=== PATIENT | female | born 1965 | race Caucasian/White ===

== ENCOUNTER 2023-01-30 14:41 | Outpatient (REF) | payer BC, SELFPAY ==
--- NOTE | ~2023-01-30 | XR_ITS ---
EXAMINATION: XR HIP, RIGHT CLINICAL INFORMATION: M25.551 - Pain in right hip COMPARISON: None available. TECHNIQUE: Two views of the right hip. FINDINGS: No fracture or dislocation or destructive process. No definite joint narrowing and no subchondral sclerosis or erosive change. Soft tissue planes appear normal. Probable bone island right ilium. The SI joint is unremarkable. XR/XR hip RT min 2V IMPRESSION: Unremarkable right hip.
--- NOTE | ~2023-01-30 | XR_ITS ---
EXAMINATION: XR SHOULDER, RIGHT CLINICAL INFORMATION: Right shoulder pain COMPARISON: None available. TECHNIQUE: Right shoulder is imaged in 4 views. FINDINGS: No fracture, dislocation, destructive process. Normal glenohumeral joint. The acromioclavicular alignment is normal. No visible rotator cuff calcifications. XR/XR shoulder RT min 2V IMPRESSION: Unremarkable right shoulder.
== END 2023-01-30 14:42 | disposition home or self-care (01) ==
LOC: HO.HMGCX 14:41
PROVIDERS: PCP Hospitalist; Visit Provider Hospitalist
DX: M25.551 Pain in right hip (principal); M25.511 Pain in right shoulder; G89.29 Other chronic pain
CPT/HCPCS: 73030; 73502

== ENCOUNTER 2023-02-03 06:26 | Outpatient (REF) | payer BC, SELFPAY ==
[2023-02-03 11:22] LABS: Appearance Urine Clear; Color Urine Yellow; Glucose Urine UA Negative (Negative); Leukocyte Esterase Urine Negative (Negative); Nitrite Urine Negative (Negative); Urine Blood Negative (Negative); Urine Ketones Negative (Negative); Urine Protein Negative (Neg-Trace)
[2023-02-03 12:02] LABS: Alanine Aminotransferase 21 U/L (0-31); Albumin Level 4.4 g/dL (3.5-5.0); Alkaline Phosphatase 90 U/L (39-117); Anion Gap 10 (12-20); Aspartate Amino Transferase 22 U/L (5-31); Bilirubin Total 0.6 mg/dL (0.0-1.0); Blood Urea Nitrogen 18 mg/dL (9-16); Calcium 9.2 mg/dL (8.4-10.2); Carbon Dioxide 31 mmol/L (22-29); Chloride 103 mmol/L (96-108); Cholesterol 276 mg/dL; Estimated Glomerular Filt Rate > 60; Glucose Fasting 78 mg/dL (60-99); HDL Cholesterol 61 mg/dL; LDL Cholesterol Calculated 201 mg/dl; Potassium 4.3 mmol/L (3.3-5.1); Sodium 140 mmol/L (135-145); Total Protein 7.1 g/dL (6.5-8.0); Triglycerides 73 mg/dL
[2023-02-03 12:09] LABS: TSH reflex Free T4 6.43 uIU/mL (0.32-4.0); Vitamin B12 379 pg/mL (200-900)
[2023-02-03 12:47] LABS: Free T4 (Free Thyroxine) 0.87 ng/dL (0.71-1.85)
[2023-02-08 14:28] LABS: Vitamin D 25-OH, D2 <4 ng/mL; Vitamin D 25-OH, D3 25 ng/mL; Vitamin D 25-OH, Total 25 ng/mL (30-100)
== END 2023-02-03 06:27 | disposition home or self-care (01) ==
LOC: HO.HMGCLDS 06:26
PROVIDERS: PCP Hospitalist; Visit Provider Hospitalist
DX: Z00.00 Encounter for general adult medical examination without abnormal findings (principal); Z11.3 Encounter for screening for infections with a predominantly sexual mode of transmission; E55.9 Vitamin D deficiency, unspecified; Z86.2 Personal history of diseases of the blood and blood-forming organs and certain disorders involving the immune mechanism; E66.3 Overweight
CPT/HCPCS: 36415; 80053; 80061; 81003; 82306; 82607; 84439; 84443

== ENCOUNTER 2023-09-24 06:25 | Day surgery (SDC) | payer BC, SELFPAY ==
[2023-09-22 12:10] VITALS: BMI 26.1
--- NOTE | 2023-09-23 09:58 | P.CONAN_ITS ---
Documented by User: Laya Connor NP 09/23/23 09:58 HPI - Anesthesia Eval Consult details Narrative: 58yo F for Colonoscopy [facility] Active Problems Active Problems: All Active Problems (Updated 02/03/23 @ 13:21 by Latanya Mauro NP) Elevated TSH (Acute) Screen for colon cancer (Acute) Screening mammogram for breast cancer (Acute) BMI 26.0-26.9,adult (Acute) Vitamin D deficiency (Acute) History of anemia due to vitamin B12 deficiency (Acute) Chronic right hip pain (Acute) Chronic right shoulder pain (Acute) Normal physical exam (Acute) Social History Social History Housing: House Patient Tobacco Use Status: Never used Tobacco Use of substances other than those prescribed or required for medical reasons: No Are you DNR?: No Advance Directives: No Advance Directives Information Provided: Yes Current occupational status: employed Current occupation: [employer] Allergies Allergy/AdvReac Type Severity Reaction Status Date / Time No Known Allergies Allergy Verified 09/24/23 06:57 [No Known Allergies*] Exam Height,Weight and Vital Signs: Height 5 ft 8 in Weight 78.018 kg Assessment and Plan Assessment Anesthesia Assessment: Chart Reviewed Documented by User: Donte Acuña MD 09/24/23 07:22 [facility] Family History Family history of problems with anesthesia: No Surgical History History of Problems with Anesthesia: No Social History Social History Housing: House Patient Tobacco Use Status: Never used Tobacco Use of substances other than those prescribed or required for medical reasons: No Are you DNR?: No Advance Directives: No Advance Directives Information Provided: Yes Current occupational status: employed Current occupation: [employer] Allergies Allergy/AdvReac Type Severity Reaction Status Date / Time No Known Allergies Allergy Verified 09/24/23 06:57 [No Known Allergies*] Exam Airway Mallampati Class: II TM Dist: >3cm Neck ROM: Full Assessment and Plan Assessment Anesthesia Assessment: Anesthesia Plan Discussed Final Anesthetic Review Family History of Problems with Anesthesia: No History of Problems with Anesthesia: No NPO: Yes ASA Class: I Final Preanesthetic Review: No Changes in Pt Med Stat, Meds/Allgs Chart Reviewed, Consent Obtained/Reviewed and Anes Risks/Benef Reviewed Patient Risk: Low Procedure Risk: Low Anesthetic Plan Anesthetic Plan: MAC: Disposition: Standard PACU
--- NOTE | 2023-09-24 06:45 | MHC.SHP ---
Pre-Procedural Eval Section A Date of Service: 09/24/23 Section B Chief Complaint: screening Details of Present Illness: grandmother with CRC Relevant Family History (Specify if Yes): Yes Relevant Social History: None Present Medications: see Short Stay Collaborative assessment Medical History: Significant History (b12 def, vit d defm elevated tSH) History of Previous Operations: No relevant previous surgery Allergies: Allergies Allergy/AdvReac Type Severity Reaction Status Date / Time No Known Allergies Allergy Unverified 01/29/23 14:12 [No Known Allergies*] Review of Systems Sugical H&P ROS: Negative: Constitution, Cardiovascular, Respiratory, Neurological, Psychiatric, Hem-Onc, Allergic/Immunologic, Gastrointestinal, Genitourinary, Musculoskeletal, Integumentary, Endocrine and Eyes/Ears/Nose/Throat Exam Surgical H&P Exam: Normal: HEENT, Normal: Heart, Normal: Lungs, Normal: Extremities, Normal: Abdomen, Normal: Skin and Normal: Neurological Plan Diagnosis/Plan: Unchanged I have reviewed the history and physical and performed a pertinent physical examination on my patient. No changes have occurred unless specified. Time Spent With Patient Time: Total time managing care of this patient today ____ minutes.
[2023-09-24 06:52] VITALS: BMI 25.6
[2023-09-24 07:03] VITALS: BP 150/92; PULSE 75; RESP 16; TEMP 36.6; O2SAT 98
[2023-09-24] MEDS: Lactated Ringers 1,000 ML 100 ML IVCONT (07:12)
--- NOTE | 2023-09-24 07:42 | W.PM.OPN ---
Operative Note Operative Note Date of Service: 09/24/23 Narrative: Operative Information Procedure Description: Colonoscopy Indication: screening Anesthesia: MAC COLONOSCOPY Instrument: Olympus variable stiffness pediatric scope 190L Colonoscopy Monitoring: Vital signs and clinical assessment, continuous EKG monitoring, Pulse oximetry, Carbon Dioxide monitoring and blood pressure monitoring were done throughout the procedure. Colon withdrawal time was 7 minutes. Procedure: The patient was placed in the left lateral decubitis position and pre-procedure medications were administered. After a digital rectal examination of the ano-rectum, the video colonoscope was inserted into the rectum and advanced through the colon to the cecum/TI. The colonoscope was slowly withdrawn in a retrograde panoramic fashion and the colon mucosa was carefully examined including a retroflexed view of the rectum. Findings and interventions are described below. Procedure Difficulty: easy Findings: Terminal Ileum-normal Cecum:normal Ascending Colon: normal Transverse Colon -normal Descending Colon:normal Sigmoid Colon: normal Rectum: Retroflexion with small internal hemorrhoids, grade I Anorectum - normal Colon preparation: [place] Bowel Preparation Scale Right colon; 3 Transverse colon: 3 Left colon; 3 (0 = Unprepared colon segment with mucosa not seen due to solid stool that cannot be cleared. 1 = Portion of mucosa of the colon segment seen, but other areas of the colon segment not well seen due to staining, residual stool and/or opaque liquid. 2 = Minor amount of residual staining, small fragments of stool and/or opaque liquid, but mucosa of colon segment seen well. 3 = Entire mucosa of colon segment seen well with no residual staining, small fragments of stool or opaque liquid) Impression and Post Procedure Diagnosis: internal hemorrhoids Plan: High fiber diet leaflet Avoid straining at stool, epsom salts and sitz bath, anusol supps or cream Repeat Colonoscopy in 10 years or earlier if clinically indicated Above findings were reviewed with the patient and relevant handouts were provided if indicated.
[2023-09-24 08:03] VITALS: BP 112/64; PULSE 71; RESP 16; TEMP 36.2; O2SAT 98
[2023-09-24 08:18] VITALS: BP 131/90; PULSE 73; RESP 18; TEMP 36.3; O2SAT 99
== END 2023-09-24 08:43 | disposition home or self-care (01) ==
PROVIDERS: Visit Provider Internal Medicine Gastroenterology
PROC: 0DJD8ZZ Inspection of Lower Intestinal Tract, Via Natural or Artificial Opening Endoscopic (ICD-10-PCS; CPT 45378; principal; 2023-09-24 07:30)
DX: Z12.11 Encounter for screening for malignant neoplasm of colon (principal); K64.0 First degree hemorrhoids; E55.9 Vitamin D deficiency, unspecified; E53.8 Deficiency of other specified B group vitamins; R94.6 Abnormal results of thyroid function studies
CPT/HCPCS: 45378; J2704

== ENCOUNTER → 2023-09-24 06:25 | Outpatient (BNV) | payer BC, SELFPAY | PROVIDERS: Visit Provider Internal Medicine Gastroenterology | DX: Z12.11 Encounter for screening for malignant neoplasm of colon (principal); K64.8 Other hemorrhoids | CPT/HCPCS: 45378 ==

== ENCOUNTER 2023-10-09 12:13 | Outpatient (AMB) | payer BC, SELFPAY ==
--- NOTE | 2023-10-09 12:24 | MHC.PC.OV ---
Vital Signs 10/09/23 12:27 Height 5 ft 8 in Weight 173 lb BMI 26.3 BP 132/76 Blood Pressure Location Lt brachial Position Sitting Pulse 84 Pulse Source Pulse Oximeter Pulse Oximetry (%) 100 Oxygen Delivery Method Room Air Intake Visit Reasons: follow up anxiety depression Intake Note: Patient is here to follow up on anxiety and depression today. Allergies No Known Allergies [No Known Allergies*] Allergy (Verified 10/09/23 12:45) Medication List - Last Reconciled 10/09/23 by Pat Moore CNP bisacodyl (Dulcolax (bisacodyl)) 20 mg (4 x 5 mg) PO ONCE ibuprofen 600 mg PO Q8H PRN polyethylene glycol 3350 (Miralax) 238 grams PO ONCE psyllium husk (Metamucil) 1 tbsp PO DAILY Tobacco use date assessed: 10/09/23 Dental Screening Dental Screen Date: 10/09/23 Did you have a dental visit in the last 12 months?: Yes Did you have a dental problem in the last 6 months where you did not have access to dental care?: No Was dental information given to patient?: Patient has dentist HPI HPI Comments History of Present Illness Details 58-year-old female presents for anxiety and depression Her former PCP is BRYSON who is no longer with the practice. Her last office visit and blood work was in January 2023 She reports h/o anxiety and depression. She was on psychotropic medications 10 years ago. She was also followed by a therapist 8 years ago. She notes that her anxiety and depression worsened in the winter. She notes that she worries a lot especially at night. She is on the verge of transitioning to a new job. She has a large family she cares for and feels overwhelmed sometime. She has been doing an hour and half yoga/meditation weekly for the past 1 year [facility] Social History (Reviewed 10/09/23 @ 12:30 by Kristina Sanders [facility]) Housing: House Patient Tobacco Use Status: Never used Tobacco e-Cigarette/Vaping Use: Never Used Current occupational status: employed Current occupation: [employer] Questionnaire PHQ-9 Over the last 2 weeks, how often have you been bothered by any of the following problems? 1. Little interest or pleasure in doing things: several days 2. Feeling down, depressed, or hopeless: not at all 3. Trouble falling or staying asleep, or sleeping too much: more than half the days 4. Feeling tired or having little energy: several days 5. Poor appetite or overeating: not at all 6. Feeling bad about yourself - or that you are a failure or have let yourself or your family down: several days 7. Trouble concentrating on things, such as reading the newspaper or watching television: not at all 8. Moving or speaking so slowly that other people could have noticed. Or the opposite - being so fidgety or restless that you have been moving around a lot more than usual: not at all 9. Thoughts that you would be better off or of hurting yourself in some way: not at all Total score: 5 Depression Screening Interpretation: Positive Depression Screening Follow-up: Existing condition and Community Mental Health Worker F/U Depression Screening Done: Yes Source: Developed by Drs. Campos Odell, Twila Thornton, Laureano Childs and colleagues, with an educational sil from [employer]. Thrive Questionnaire Date Thrive assessed: 01/29/23 MAXIMILIANO-7 AMB Questionnaire MAXIMILIANO-7 Date MAXIMILIANO - 7 assessed: 10/09/23 Feeling nervous, anxious, or on edge: 1 = Several days Not being able to stop or control worryin = Not at all Worrying too much about different things: 3 = Nearly every day Trouble relaxin = Several days Being so restless that it is hard to sit still: 0 = Not at all Becoming easily annoyed or irritable: 1 = Several days Feeling afraid as if something awful might happen: 0 = Not at all Total MAXIMILIANO-7 score (0-4 normal; 5-9 mild; 10-14 moderate; 15-21 severe): 6 Source: Developed by Drs. Campos Odell, Laureano Zaidi and colleagues, with an educational sil from [employer]. Review of Systems Const Details: Const Denies chills, Denies fatigue, Denies fever(s), Denies headache(s) and Denies weakness ENT Denies dizziness and Denies headache(s) Card Denies chest pain, Denies lightheadedness, Denies dyspnea and Denies other (Palpitations) Resp Denies cough, Denies dyspnea, Denies wheezing and Denies other ( shortness of breath) GI Denies abdominal pain, Denies melena, Denies hematochezia, Denies change in bowel habits, Denies dyspepsia and Denies nausea Denies hematuria and Denies dysuria Musc Denies abnormal gait, Denies myalgias, Denies arthralgias, Denies numbness and Denies tingling Skin/Breast Denies rash, Denies unusual bruising and Denies wounds Neuro Denies abnormal gait, Denies dizziness, Denies headache(s), Denies memory loss, Denies numbness, Denies Sensory deficit (Neuro), Denies tingling and Denies weakness Psych Reports anxiety, Reports depression, Denies memory loss Endo Denies cold intolerance, Denies fatigue, Denies heat intolerance, Denies polydipsia and Denies polyuria Aller/Immun Denies wheezing Physical exam (Primary Care) Vital Signs: Last Vital Signs Pulse 84 10/09/23 12:27 BP 132/76 10/09/23 12:27 Pulse Ox 100 10/09/23 12:27 Oxygen Delivery Method Room Air 10/09/23 12:27 BMI result Body Mass Index 26.3 Tobacco/Smoking Status: Tobacco use Status Tobacco use date assessed 10/09/23 10/09/23 12:37 Patient Tobacco Use Status Never used Tobacco 10/09/23 12:25 e-Cigarette/Vaping Use Never Used 10/09/23 12:37 PHQ-9: PHQ-9 Score PHQ-9: Total score 5 10/09/23 12:37 Depression Screening Interpretation: Positive Depression Screening Follow-up: Existing condition and Community Mental Health Worker F/U Thrive Assessment: Date of Thrive Assessment Date Thrive assessed 01/29/23 10/09/23 12:25 Const Other: General: no acute distress and well developed Nutritional Appearance: well nourished Orientation/consciousness: patient oriented x3 HENMT Head: Yes normocephalic and Yes atraumatic Eyes General: appearance normal, both eyes and all related structures Pupils: Equal, round and reactive pupils present EOM: EOMs intact bilaterally Resp Effort & Inspection: normal respiratory effort Auscultation: clear to auscultation bilaterally Cardio Rate: regular rate Rhythm: regular rhythm Heart sounds: S1 normal heart sound present, S2 normal heart sound present, no gallops, no murmurs and no rubs GI Palpation (GI): No Abdominal aortic bruit present, Soft to palpation, nontender, No hepatosplenomegaly present and No Rebound tenderness present Auscultation: normal bowel sounds General: Yes no CVA tenderness Back/Spine/Pelvis Back: no CVA tenderness Cervical Spine: cervical ROM normal and No Cervical spine tenderness Thoracic/Lumbar Spine: thoraco-lumbar ROM normal, No pain with thoraco-lumbar ROM, No thoracic spinal tenderness and No lumbar spinal tenderness Extrem General: Yes normal to inspection, No edema and No calf tenderness Skin General: warm and dry. Normal skin color. Normal skin turgor Neuro General: patient oriented x3, gait normal and no focal neuro deficit Cranial nerves: Yes Equal, round and reactive pupils present Cognition (Neuro): normal cognition Gait exam (Neuro): Normal gait present Sensory Exam: No Sensory deficit (Neuro) Psych Appearance: grossly normal Affect: normal affect Attitude: cooperative Thought process: Normal thought process present Assessment and Plan Assessment & Plan (1) Anxiety and depression: Code(s): F41.9 - Anxiety disorder, unspecified; F32.A - Depression, unspecified Plan: PHQ-9 and MAXIMILIANO-7 scores revealed mild depression and anxiety She met with the community navigator who would refer her to a therapist Routine exercise encouraged Follow-up in 1 month for transfer of care, anxiety, and depression Return sooner with worsening or new symptoms Will order routine labs in preparation for an extended physical exam Verbalized understanding and agreed with treatment plan (2) Laboratory tests ordered as part of a complete physical exam (CPE): Code(s): Z00.00 - Encounter for general adult medical examination without abnormal findings Plan: Fasting labs ordered as part of a complete physical exam. Advised to fast for at least 10 hours before getting labs drawn. May drink water Verbalized understanding and agreed with treatment plan. Orders: Orders Lipid Panel Today Z00.00 - Encounter for general adult medical examination without abnormal findings UA CC w/rflx Micro + Cult Today Z00.00 - Encounter for general adult medical examination without abnormal findings Complete Blood Count Auto Diff Today Z00.00 - Encounter for general adult medical examination without abnormal findings Comprehensive [place]. Panel Fast Today Z00.00 - Encounter for general adult medical examination without abnormal findings TSH reflex Free T4 Today Z00.00 - Encounter for general adult medical examination without abnormal findings Coding Level of Care Code Est Pt Level 3 (24050) Diagnoses Anxiety and depression F41.9; F32.A Laboratory tests ordered as part of a complete physical exam (CPE) Z00.00
[2023-10-09 12:27] VITALS: BP 132/76; PULSE 84; O2SAT 100; BMI 26.3
== END 2023-10-09 13:10 | disposition home or self-care (01) ==
PROVIDERS: Visit Provider Nurse Practitioner Family
DX: F41.9 Anxiety disorder, unspecified (principal); F32.A Depression, unspecified; Z00.00 Encounter for general adult medical examination without abnormal findings
CPT/HCPCS: 99213

== ENCOUNTER 2024-03-05 16:45 | Outpatient (AMB) | payer BC, SELFPAY ==
[2024-03-05 16:48] VITALS: BP 130/72; PULSE 91; O2SAT 98; BMI 25.5
--- NOTE | 2024-03-05 16:48 | MHC.PC.OV ---
Vital Signs 03/05/24 16:48 03/05/24 17:29 Height 5 ft 8 in Weight 168 lb BMI 25.5 BP 130/72 170/100 H Blood Pressure Location Lt brachial Rt brachial Position Sitting Sitting Pulse 91 Pulse Source Pulse Oximeter Pulse Oximetry (%) 98 Oxygen Delivery Method Room Air Intake Visit Reasons: High Blood Pressure and Hip Pain Intake Note: Patient is here for high blood pressure, and bilateral hip pain, with right hip being worse. She states her blood pressure has been high since she got bitten by tick. Allergies No Known Allergies [No Known Allergies*] Allergy (Verified 03/05/24 17:13) Medication List - Last Reconciled 03/05/24 by Pat Moore CNP ibuprofen 600 mg PO Q8H PRN Tobacco use date assessed: 03/05/24 Dental Screening Dental Screen Date: 10/09/23 HPI HPI Comments History of Present Illness Details 58-year-old female presents with complaints of elevated blood pressure. She notes that her blood pressure has been elevated since she got bitten by a tick to her right calf 2 weeks ago; she was given antibiotic in an urgent care clinic. She notes that her SBP was 160 at the urgent care and her home BP has been in the 150s. She reports associated intermittent headaches which she attributes to job stressors. She denies acute symptoms. She reports significant work stressors due to work demands. She notes that her mother had h/o HTN and HLD and from brain aneurysm. She denies heavy salt consumption. [facility] Social History Housing: House Patient Tobacco Use Status: Never used Tobacco e-Cigarette/Vaping Use: Never Used Current occupational status: employed Current occupation: [employer] Questionnaire PHQ-9 Over the last 2 weeks, how often have you been bothered by any of the following problems? 1. Little interest or pleasure in doing things: several days 2. Feeling down, depressed, or hopeless: several days 3. Trouble falling or staying asleep, or sleeping too much: several days 4. Feeling tired or having little energy: several days 5. Poor appetite or overeating: not at all 6. Feeling bad about yourself - or that you are a failure or have let yourself or your family down: not at all 7. Trouble concentrating on things, such as reading the newspaper or watching television: several days 8. Moving or speaking so slowly that other people could have noticed. Or the opposite - being so fidgety or restless that you have been moving around a lot more than usual: not at all 9. Thoughts that you would be better off or of hurting yourself in some way: not at all Total score: 5 Source: Developed by Drs. Campos Odell, Twila Thornton, Laureano Childs and colleagues, with an educational sil from [employer]. Thrive Questionnaire Date Thrive assessed: 01/29/23 MAXIMILIANO-7 AMB Questionnaire MAXIMILIANO-7 Date MAXIMILIANO - 7 assessed: 10/09/23 Feeling nervous, anxious, or on edge: 1 = Several days Not being able to stop or control worryin = Several days Worrying too much about different things: 1 = Several days Trouble relaxin = More than half the days Being so restless that it is hard to sit still: 0 = Not at all Becoming easily annoyed or irritable: 1 = Several days Feeling afraid as if something awful might happen: 0 = Not at all Total MAXIMILIANO-7 score (0-4 normal; 5-9 mild; 10-14 moderate; 15-21 severe): 6 Source: Developed by Drs. Campos Odell, Twila Thornton, Laureano Childs and colleagues, with an educational sil from [employer]. Review of Systems Const Details: Const Denies chills, Denies fatigue, Denies fever(s), Denies headache(s) and Denies weakness ENT Denies dizziness and Denies headache(s) Card Denies chest pain, Denies lightheadedness, Denies dyspnea and Denies other (Palpitations) Resp Denies cough, Denies dyspnea, Denies wheezing and Denies other ( shortness of breath) GI Denies abdominal pain, Denies melena, Denies hematochezia, Denies change in bowel habits, Denies dyspepsia and Denies nausea Denies hematuria and Denies dysuria Musc Reports as per HPI Skin/Breast Denies rash, Denies unusual bruising and Denies wounds Neuro Denies abnormal gait, Denies dizziness, Denies headache(s), Denies memory loss, Denies numbness, Denies Sensory deficit (Neuro), Denies tingling and Denies weakness Psych Denies anxiety, Denies depression, Denies memory loss Endo Denies cold intolerance, Denies fatigue, Denies heat intolerance, Denies polydipsia and Denies polyuria Aller/Immun Denies wheezing Physical exam (Primary Care) BMI result Body Mass Index 25.5 Tobacco/Smoking Status: Tobacco use Status Tobacco use date assessed 10/09/23 10/09/23 12:37 Patient Tobacco Use Status Never used Tobacco 10/09/23 12:25 e-Cigarette/Vaping Use Never Used 10/09/23 12:37 Thrive Assessment: Date of Thrive Assessment Date Thrive assessed 01/29/23 10/09/23 13:20 Const Other: General: no acute distress and well developed Nutritional Appearance: well nourished Orientation/consciousness: patient oriented x3 HENMT Head: Yes normocephalic and Yes atraumatic Eyes General: appearance normal, both eyes and all related structures Pupils: Equal, round and reactive pupils present EOM: EOMs intact bilaterally Resp Effort & Inspection: normal respiratory effort Auscultation: clear to auscultation bilaterally Cardio Rate: regular rate Rhythm: regular rhythm Heart sounds: S1 normal heart sound present, S2 normal heart sound present, no gallops, no murmurs and no rubs GI Palpation (GI): No Abdominal aortic bruit present, Soft to palpation, nontender, No hepatosplenomegaly present and No Rebound tenderness present Auscultation: normal bowel sounds General: Yes no CVA tenderness Back/Spine/Pelvis Back: no CVA tenderness Cervical Spine: cervical ROM normal and No Cervical spine tenderness Thoracic/Lumbar Spine: thoraco-lumbar ROM normal, No pain with thoraco-lumbar ROM, No thoracic spinal tenderness and No lumbar spinal tenderness Extrem General: Yes normal to inspection, No edema and No calf tenderness Skin General: warm and dry. Normal skin color. Normal skin turgor Lesions: no lesions Rashes: no rashes Trauma: no lacerations or abrasions Wounds: no wounds Nails: normal Neuro General: patient oriented x3, gait normal and no focal neuro deficit Cranial nerves: Yes Equal, round and reactive pupils present Cognition (Neuro): normal cognition Gait exam (Neuro): Normal gait present Sensory Exam: No Sensory deficit (Neuro) Psych Appearance: grossly normal Affect: normal affect Attitude: cooperative Thought process: Normal thought process present Assessment and Plan Assessment & Plan (1) Hypertension: Code(s): I10 - Essential (primary) hypertension Plan: Resting blood pressure is 170/100, above goal of less than 140/90 Will start lisinopril 20 mg daily. Take as prescribed. Instructed on the risks, benefits, and potential adverse reactions of the medication Low-sodium diet encouraged Follow-up next week Friday Return sooner with symptoms or concerns Verbalized understanding and agreed with treatment plan (2) Anxiety and depression: Code(s): F41.9 - Anxiety disorder, unspecified; F32.A - Depression, unspecified Plan: PHQ-9 and MAXIMILIANO-7 scores revealed mild depression and anxiety Routine exercise encouraged Follow-up with symptoms or concerns Verbalized understanding and agreed with the plan Medications: New lisinopril 20 mg PO DAILY 30 days 30 tabs 3RF Coding Level of Care Code New Pt Level 4 (75486) Complex EM visit Add On G2211 Diagnoses Hypertension I10 Anxiety and depression F41.9; F32.A
[2024-03-05 17:29] VITALS: BP 170/100
== END 2024-03-05 17:34 | disposition home or self-care (01) ==
PROVIDERS: PCP Nurse Practitioner Family; Visit Provider Nurse Practitioner Family
DX: I10 Essential (primary) hypertension (principal); F41.9 Anxiety disorder, unspecified; F32.A Depression, unspecified
CPT/HCPCS: 99214; G2211

== ENCOUNTER 2024-03-08 17:04 | Outpatient (AMB) | payer BC, SELFPAY ==
--- NOTE | 2024-03-08 17:10 | A.OFFPC_ITS ---
Vital Signs 03/08/24 17:14 03/08/24 17:19 03/08/24 17:26 Height 5 ft 8 in Weight 170 lb 8 oz BMI 25.9 BP 168/82 H 156/82 H 150/90 H Blood Pressure Location Rt brachial Rt brachial Rt brachial Position Sitting Sitting Sitting Respiration 14 Pulse 85 Pulse Source Pulse Oximeter Pulse Oximetry (%) 99 Oxygen Delivery Method Room Air Intake Visit Reasons: hypertension Intake Note: Follow up hypertension Private Branch Exchange Operator Required: No Allergies No Known Allergies [No Known Allergies*] Allergy (Verified 03/08/24 17:10) Tobacco use date assessed: 03/05/24 Dental Screening Dental Screen Date: 03/08/24 Did you have a dental visit in the last 12 months?: Yes Did you have a dental problem in the last 6 months where you did not have access to dental care?: No Was dental information given to patient?: Patient has dentist HPI HPI Comments History of Present Illness Details 58-year-old female presents for hyperten trae follow-up Her blood pressure was 170/100 3 days ago. She was prescribed lisinopril 20 mg daily which she notes she has been taking as prescribed without adverse reactions. She has been taking the medication in the evening Her home AM BP readings in the past two days are 120/71 and 121/73; PM BP readings in the past two days are 151/90 and 152/88 She has been doing yoga was a week for the past year and a half She offers no complaints and denies acute symptoms at this time [facility] Social History Housing: House Patient Tobacco Use Status: Never used Tobacco e-Cigarette/Vaping Use: Never Used Current occupational status: employed Current occupation: [employer] Current occupational exposures/hazards: Yes (works with blood) Cognitive needs: No Hearing needs: No Vision needs: No Questionnaire Thrive Questionnaire Date Thrive assessed: 01/29/23 AUDIT C Alcohol Use Questionnaire (AUDIT-C) 1. How often do you have a drink containing alcohol?: Monthly or less 2. How many drinks containing alcohol do you have on a typical day when you are drinking?: 1 or 2 3. How often do you have six or more drinks on one occasion?: Never Total Score: 1 MAXIMILIANO-7 AMB Questionnaire MAXIMILIANO-7 Date MAXIMILIANO - 7 assessed: 10/09/23 Source: Developed by Drs. Campos Odell, Twila Thornton, Laureano Childs and colleagues, with an educational sil from [employer]. Review of Systems Const Details: Const Denies chills, Denies fatigue, Denies fever(s), Denies headache(s) and Denies weakness ENT Denies dizziness and Denies headache(s) Card Denies chest pain, Denies lightheadedness, Denies dyspnea and Denies other (Palpitations) Resp Denies cough, Denies dyspnea, Denies wheezing and Denies other ( shortness of breath) GI Denies abdominal pain, Denies melena, Denies hematochezia, Denies change in bowel habits, Denies dyspepsia and Denies nausea Denies hematuria and Denies dysuria Musc Denies abnormal gait, Denies myalgias, Denies arthralgias, Denies numbness and Denies tingling Skin/Breast Denies rash, Denies unusual bruising and Denies wounds Neuro Denies abnormal gait, Denies dizziness, Denies headache(s), Denies memory loss, Denies numbness, Denies Sensory deficit (Neuro), Denies tingling and Denies weakness Psych Denies anxiety, Denies depression, Denies memory loss Endo Denies cold intolerance, Denies fatigue, Denies heat intolerance, Denies polydipsia and Denies polyuria Aller/Immun Denies wheezing Physical exam (Primary Care) Vital Signs: Last Vital Signs Pulse 85 03/08/24 17:14 Resp 14 03/08/24 17:14 BP 156/82 H 03/08/24 17:19 Pulse Ox 99 03/08/24 17:14 Oxygen Delivery Method Room Air 03/08/24 17:14 BMI result Body Mass Index 25.9 Tobacco/Smoking Status: Tobacco use Status Tobacco use date assessed 03/05/24 03/08/24 17:17 Patient Tobacco Use Status Never used Tobacco 03/08/24 17:17 e-Cigarette/Vaping Use Never Used 03/08/24 17:17 Thrive Assessment: Date of Thrive Assessment Date Thrive assessed 01/29/23 03/08/24 17:17 Const Other: General: no acute distress and well developed Nutritional Appearance: well nourished Orientation/consciousness: patient oriented x3 HENMT Head: Yes normocephalic and Yes atraumatic Eyes General: appearance normal, both eyes and all related structures Pupils: Equal, round and reactive pupils present EOM: EOMs intact bilaterally Resp Effort & Inspection: normal respiratory effort Auscultation: clear to auscultation bilaterally Cardio Rate: regular rate Rhythm: regular rhythm Heart sounds: S1 normal heart sound present, S2 normal heart sound present, no gallops, no murmurs and no rubs GI Palpation (GI): No Abdominal aortic bruit present, Soft to palpation, nontender, No hepatosplenomegaly present and No Rebound tenderness present Auscultation: normal bowel sounds General: Yes no CVA tenderness Back/Spine/Pelvis Back: no CVA tenderness Cervical Spine: cervical ROM normal and No Cervical spine tenderness Thoracic/Lumbar Spine: thoraco-lumbar ROM normal, No pain with thoraco-lumbar ROM, No thoracic spinal tenderness and No lumbar spinal tenderness Extrem General: Yes normal to inspection, No edema and No calf tenderness Skin General: warm and dry. Normal skin color. Normal skin turgor Neuro General: patient oriented x3, gait normal and no focal neuro deficit Cranial nerves: Yes Equal, round and reactive pupils present Cognition (Neuro): normal cognition Gait exam (Neuro): Normal gait present Sensory Exam: No Sensory deficit (Neuro) Psych Appearance: grossly normal Affect: normal affect Attitude: cooperative Thought process: Normal thought process present Assessment and Plan Assessment & Plan (1) Hypertension: Code(s): I10 - Essential (primary) hypertension Plan: Resting blood pressure is 150/90, above goal of less than 140/90 Continue to take lisinopril 20 mg daily Low-sodium diet encouraged Continue to check blood pressure daily, record readings, and bring to next appointment. Called and report blood pressure readings persistently above 160/90 with or without symptoms Follow-up for a nurse visit in 1 week for blood pressure check and PCP in 2 weeks Return sooner with symptoms or concerns Verbalized understanding and agreed with treatment plan Coding Level of Care Code Est Pt Level 3 (13716) Diagnoses Hypertension I10
[2024-03-08 17:14] VITALS: BP 168/82; PULSE 85; RESP 14; O2SAT 99; BMI 25.9
[2024-03-08 17:19] VITALS: BP 156/82
[2024-03-08 17:26] VITALS: BP 150/90
== END 2024-03-08 17:35 | disposition home or self-care (01) ==
PROVIDERS: PCP Nurse Practitioner Family; Visit Provider Nurse Practitioner Family
DX: I10 Essential (primary) hypertension (principal)
CPT/HCPCS: 99213

== ENCOUNTER 2024-03-23 17:00 | Outpatient (AMB) | payer BC, SELFPAY ==
--- NOTE | 2024-03-23 17:01 | A.OFFPC_ITS ---
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 Accompanied by: Self / Same As Patient Allergies No Known Allergies [No Known Allergies*] Allergy (Verified 03/23/24 17:32) Medication List - Last Reconciled 03/23/24 by Pat Moore CNP ibuprofen (Advil Liqui-Gels Minis) 200 mg PO Q6H PRN lisinopril 20 mg PO DAILY 30 days multivitamin 1 tab PO DAILY psyllium husk (Metamucil) 1 tbsp PO DAILY Tobacco use date assessed: 03/05/24 Dental Screening Dental Screen Date: 03/08/24 HPI HPI Comments History of Present Illness Details 58 y/o female presents for HTN follow up She admits to taking Lisinopril as prescribed without adverse reactions She notes that her home systolic blood pressure readings have been between 130 and 140 Reports persistent right lateral hip pain for the past 2 years; worse with prolonged sitting, standing, and with certain movements. She takes Tylenol and ibuprofen with some relief. She notes routine physical exercise. No fall, injury, trauma. X-ray of the right hip in January 2023 was normal. No history of physical therapy or ortho consult [facility] Medical History (Updated 03/23/24 @ 17:09 by MOODY Arteaga) No pertinent past medical history Surgical History (Updated 03/23/24 @ 17:09 by MOODY Arteaga) No pertinent past surgical history Social History Housing: House Patient Tobacco Use Status: Never used Tobacco e-Cigarette/Vaping Use: Never Used service: No Current occupational status: employed Current occupation: [employer] Current occupational exposures/hazards: Yes (works with blood) Cognitive needs: No Hearing needs: No Vision needs: No Questionnaire Thrive Questionnaire Date Thrive assessed: 01/29/23 MAXIMILIANO-7 AMB Questionnaire MAXIMILIANO-7 Date MAXIMILIANO - 7 assessed: 10/09/23 Source: Developed by Drs. Campos LTwila Menezes, Laureano Childs and colleagues, with an educational sil from [employer]. Review of Systems Const Details: Const Denies chills, Denies fatigue, Denies fever(s), Denies headache(s) and Denies weakness ENT Denies dizziness and Denies headache(s) Card Denies chest pain, Denies lightheadedness, Denies dyspnea and Denies other (Palpitations) Resp Denies cough, Denies dyspnea, Denies wheezing and Denies other ( shortness of breath) GI Denies abdominal pain, Denies melena, Denies hematochezia, Denies change in bowel habits, Denies dyspepsia and Denies nausea Denies hematuria and Denies dysuria Musc Reports right hip pain, Denies abnormal gait, Denies numbness and Denies tingling Skin/Breast Denies rash, Denies unusual bruising and Denies wounds Neuro Denies abnormal gait, Denies dizziness, Denies headache(s), Denies memory loss, Denies numbness, Denies Sensory deficit (Neuro), Denies tingling and Denies weakness Psych Denies anxiety, Denies depression, Denies memory loss Endo Denies cold intolerance, Denies fatigue, Denies heat intolerance, Denies polydipsia and Denies polyuria Aller/Immun Denies wheezing Physical exam (Primary Care) Vital Signs: Last Vital Signs Temp 97.6 F 03/23/24 17:04 Pulse 92 03/23/24 17:04 Resp 14 03/23/24 17:04 BP 130/90 H 03/23/24 17:04 Pulse Ox 99 03/23/24 17:04 Oxygen Delivery Method Room Air 03/23/24 17:04 BMI result Body Mass Index 25.9 Tobacco/Smoking Status: Tobacco use Status Tobacco use date assessed 03/05/24 03/23/24 17:03 Patient Tobacco Use Status Never used Tobacco 03/23/24 17:03 e-Cigarette/Vaping Use Never Used 03/23/24 17:03 Thrive Assessment: Date of Thrive Assessment Date Thrive assessed 01/29/23 03/23/24 17:03 Const Other: General: no acute distress and well developed Nutritional Appearance: well nourished Orientation/consciousness: patient oriented x3 HENMT Head: Yes normocephalic and Yes atraumatic Eyes General: appearance normal, both eyes and all related structures Pupils: Equal, round and reactive pupils present EOM: EOMs intact bilaterally Resp Effort & Inspection: normal respiratory effort Auscultation: clear to auscultation bilaterally Cardio Rate: regular rate Rhythm: regular rhythm Heart sounds: S1 normal heart sound present, S2 normal heart sound present, no gallops, no murmurs and no rubs GI Palpation (GI): No Abdominal aortic bruit present, Soft to palpation, nontender, No hepatosplenomegaly present and No Rebound tenderness present Auscultation: normal bowel sounds General: Yes no CVA tenderness Back/Spine/Pelvis Back: no CVA tenderness Cervical Spine: cervical ROM normal and No Cervical spine tenderness Thoracic/Lumbar Spine: thoraco-lumbar ROM normal, No pain with thoraco-lumbar ROM, No thoracic spinal tenderness and No lumbar spinal tenderness Extrem General: Yes normal to inspection, No edema and No calf tenderness Negative right straight leg raise. No overt injury or trauma of the right hip/lower extremity Skin General: warm and dry. Normal skin color. Normal skin turgor Neuro General: patient oriented x3, gait normal and no focal neuro deficit Cranial nerves: Yes Equal, round and reactive pupils present Cognition (Neuro): normal cognition Gait exam (Neuro): Normal gait present Sensory Exam: No Sensory deficit (Neuro) Psych Appearance: grossly normal Affect: normal affect Attitude: cooperative Thought process: Normal thought process present Assessment and Plan Assessment & Plan (1) Hypertension: Code(s): I10 - Essential (primary) hypertension Plan: Resting blood pressure is 130/90, slightly above goal of less than 140/90 Continue current treatment regimen Low-sodium diet and routine exercise encouraged Follow-up in 1 month for an extended physical exam or return sooner with symptoms or concerns Verbalized understanding and agreed with treatment plan (2) Chronic right hip pain: Code(s): M25.551 - Pain in right hip; G89.29 - Other chronic pain Plan: Chronic persistent right hip pain x2 years; worst with prolonged s itting/standing or certain movements Negative right straight leg raise. No overt injury or trauma of the right hip/lower extremity X-ray of the right hip in January 2023 was normal Will order right hip/pelvis x-ray Advised to take Tylenol or ibuprofen as needed Warm/cool compresses encouraged May referred to PT or Ortho Return with worsening or new symptoms Verbalized understanding and agreed with treatment plan Orders: Orders XR hip RT w PEL1V Today G89.29 - Other chronic pain, M25.551 - Pain in right hip Coding Level of Care Code Est Pt Level 4 (84123) Complex EM visit Add On G2211 Diagnoses Hypertension I10 Chronic right hip pain M25.551; G89.29
[2024-03-23 17:04] VITALS: BP 130/90; PULSE 92; RESP 14; TEMP 36.4; O2SAT 99; BMI 25.9
== END 2024-03-23 17:43 | disposition home or self-care (01) ==
PROVIDERS: PCP Nurse Practitioner Family; Visit Provider Nurse Practitioner Family
DX: I10 Essential (primary) hypertension (principal); M25.551 Pain in right hip; G89.29 Other chronic pain
CPT/HCPCS: 99214

== ENCOUNTER 2024-04-24 09:48 | Outpatient (REF) | payer BC, SELFPAY ==
--- NOTE | ~2024-04-24 | XR_ITS ---
EXAMINATION: XR HIP, RIGHT WITH PELVIS 1 VIEW CLINICAL INFORMATION: Right hip pain COMPARISON: None available. TECHNIQUE: Two views of the right hip. AP view of the pelvis. FINDINGS: There are no pertinent prior studies available for comparison. Femoral heads are well-seated in the respected acetabula. Hip joint spaces are preserved. There is no evidence of significant degenerative or arthritic changes at the hip joints. Symphysis pubis and sacroiliac joints are unremarkable. A faint ill-defined mixed sclerotic and lucent density is noted in the right iliac bone measuring 1.3 cm in maximum dimension. No additional suspicious sclerotic or lytic lesions are seen. No evidence of acute fracture or dislocation in the pelvis and right hip. XR/XR hip RT w PEL1V IMPRESSION: Unremarkable radiographic appearance of the right hip. An ill-defined mixed lucent and sclerotic density in the right iliac bone is nonspecific. There are no pertinent prior studies available for comparison. Consider further evaluation with MRI (without and with contrast) and/or nuclear bone scan. No acute osseous abnormality in the pelvis otherwise.
[2024-04-24 10:26] LABS: MANUAL DIFF FLAG NO
[2024-04-24 11:08] LABS: Basophils Percent Auto 0.5 % (0-2); Eosinophils Absolute Auto 0.1 X10*3/uL (0.0-0.4); Eosinophils Percent Auto 1.8 % (0-4); Hematocrit 39.5 % (37.0-47.0); Hemoglobin 13.2 g/dl (12.0-16.0); Imm Gran Abs Auto 0.01 X10*3/uL (0.00-0.03); Imm Gran Pct Auto 0.3 % (0.0-0.4); Lymphocytes Absolute Auto 1.2 X10*3/uL (1.2-4.9); Lymphocytes Percent Auto 31.6 % (20-40); Mean Corpuscular HGB Conc 33.4 g/dl (31.0-35.0); Mean Corpuscular Hemoglobin 29.9 pg (27.0-33.0); Mean Corpuscular Volume 89.6 fL (80.0-98.0); Mean Platelet Volume 9.6 fL (9.4-12.3); Monocytes Absolute Auto 0.3 X10*3/uL (0.1-1.2); Monocytes Percent Auto 7.4 % (2-11); Neutrophils Absolute Auto 2.3 x10*3/uL (2.0-8.3); Neutrophils Percent Auto 58.4 % (45-73); Platelet Count 227 X10*3/uL (160-400); Red Blood Count 4.41 X10*6/uL (4.20-5.50); Red Cell Distribution Width 12.5 % (11.0-16.0); White Blood Count 3.9 X10*3/uL (4.8-10.8)
[2024-04-24 11:27] LABS: Appearance Urine Clear; Color Urine Yellow; Glucose Urine UA Negative (Negative); Leukocyte Esterase Urine Trace (Negative); Nitrite Urine Negative (Negative); PH 5.5 (5.0-9.0); Specific Gravity - Urine 1.015 (1.005-1.025); UMIC TRIGGER UACC YES; Urine Blood Negative (Negative); Urine Ketones Negative (Negative); Urine Protein Negative (Neg-Trace)
[2024-04-24 11:32] LABS: Bacteria Urine None Seen (None Seen); Hyaline Casts Urine 0-2 /LPF (0-2); RBC Urine 0-2 /HPF (0-2); Squamous Epithelial Cell Urine 0-2 /HPF (0-2); WBC Urine 0-5 /HPF (0-5)
[2024-04-24 11:55] LABS: Alanine Aminotransferase 25 U/L (0-31); Albumin Level 4.8 g/dL (3.5-5.0); Alkaline Phosphatase 90 U/L (39-117); Anion Gap 14 (12-20); Aspartate Amino Transferase 24 U/L (5-31); Bilirubin Total 0.6 mg/dL (0.0-1.0); Blood Urea Nitrogen 10 mg/dL (9-16); Calcium 9.8 mg/dL (8.4-10.2); Carbon Dioxide 25 mmol/L (22-29); Chloride 105 mmol/L (96-108); Cholesterol 332 mg/dL (<200); Estimated Glomerular Filt Rate > 60; Glucose Fasting 89 mg/dL (60-99); HDL Cholesterol 58 mg/dL (>40); LDL Cholesterol Calculated 255 mg/dL (<100); Sodium 140 mmol/L (135-145); Triglycerides 97 mg/dL (<150)
[2024-04-24 12:04] LABS: TSH reflex Free T4 2.09 uIU/mL (0.32-4.0)
== END 2024-04-24 09:49 | disposition home or self-care (01) ==
LOC: HO.XRAY 09:48
PROVIDERS: PCP Nurse Practitioner Family; Visit Provider Nurse Practitioner Family
DX: Z00.00 Encounter for general adult medical examination without abnormal findings (principal); M25.551 Pain in right hip; G89.29 Other chronic pain
CPT/HCPCS: 36415; 73502; 80053; 80061; 81001; 84443; 85025

== ENCOUNTER 2024-05-01 10:40 | Outpatient (AMB) | payer BC, SELFPAY ==
--- NOTE | 2024-05-01 10:46 | AM.OFFWIN_ITS ---
Intake Vital Signs 05/01/24 10:47 Height 5 ft 8 in Weight 168 lb BMI 25.5 BP 132/84 Blood Pressure Location Rt brachial Position Sitting Pulse 94 Pulse Source Pulse Oximeter Temp 98.7 F Temp Source Oral Pulse Oximetry (%) 99 Oxygen Delivery Method Room Air Intake Visit Reasons: EP lft hip pain down left up back Intake Note: pt here c/o LT hip and back pain. Started AM. Patient Tobacco Use Status: Never used Tobacco Allergies No Known Allergies [No Known Allergies*] Allergy (Verified 05/03/24 16:13) Do you need a note to return to daycare/school/sports/work: No HPI EP lft hip pain down left up back HPI Details Patient is a 58-year-old female comes to the walk-in clinic complaining of left hip pain radiating up and down the back for the last 2 days. She has a proximally 2 year history of chronic right low back pain that has been getting worked up by primary care, recent hip x-ray results had not been reported yet. She reports that she stretches regularly. Taking [id number] anti- inflammatories as needed. No cauda equina, saddle anesthesia, or other red flag symptoms reported. [facility] Medical History No pertinent past medical history Surgical History No pertinent past surgical history Social History Housing: House Patient Tobacco Use Status: Never used Tobacco e-Cigarette/Vaping Use: Never Used Patient : No service: No Current occupational status: employed Current occupation: [employer] Current occupational exposures/hazards: Yes (works with blood) Cognitive needs: No Hearing needs: No Vision needs: No Review of Systems Const All systems reviewed & are unremarkable except as noted in HPI and below Physical Exam Vital Signs: Last Vital Signs Temp 98.7 F 05/01/24 10:47 Pulse 94 05/01/24 10:47 BP 132/84 05/01/24 10:47 Pulse Ox 99 05/01/24 10:47 Oxygen Delivery Method Room Air 05/01/24 10:47 BMI result Body Mass Index 25.5 Const General: cooperative, healthy appearing, comfortable, no acute distress, alert, awake, Physically active and well groomed; No anxious, diaphoretic, ill appearing, intoxicated appearing, poor hygiene or tired appearing Nutritional Appearance: average body habitus Limitations: no limitations Resp Effort & Inspection: normal respiratory effort Cardio Rate: regular rate Back/Spine/Pelvis Thoracic/Lumbar Spine: thoraco-lumbar ROM normal, straight leg raise negative bilaterally, No mass, paraspinal muscle tenderness and No lumbar spinal tenderness Sacroiliac joints: on the left Skin Other: Good color, warm and dry Psych Appearance: grossly normal Mental Status: mental status grossly normal Speech and movement: Normal speech and movement present Affect: normal affect Attitude: cooperative Thought process: Normal thought process present Insight: Good insight present (Psych) Judgement: Good judgement present (Psych) Results Reviewed Results Reviewed: Reviewed right hip and one-view pelvis x-rays from April 24, which have not yet been read. I do not see any obvious osseous trauma or changes on these views. The hips appear symmetrical in nature. Assessment & Plan Assessment & Plan (1) Sacroiliitis: Code(s): M46.1 - Sacroiliitis, not elsewhere classified Plan Patient with apparent left sacroiliitis or sciatic flare-up. She has a 2 year history of chronic right tightness pain, which sounds like hip flexor tightness, and she treats with yoga. This came on suddenly for the 1st time a few days ago, with left-sided low back pain radiating down her left extremity. There is some weakness, which might be pain ready related, however no numbness or tingling. No cauda equina symptoms noted. She had a recent x-ray of the pelvis and right hip that is unremarkable on my read, pending radiologist read. I will start her on a course of naproxen, which should help better than the [id number] ibuprofen. I also wrote her for Flexeril to use at night, as her symptoms seem to be going up the left paraspinal area, and is starting to bother her sleep. She should follow up if symptoms are continuing to persist as we discussed. She should follow up emergently if she develops any worrisome symptoms in the meantime. Medications: New naproxen 500 mg PO BID PRN 28 tabs 0RF pain 14 days cyclobenzaprine 10 mg PO TID PRN 14 tabs 0RF muscle spasm Coding Level of Care Code Est Pt Level 4 (51817) Diagnoses Sacroiliitis M46.1
[2024-05-01 10:47] VITALS: BP 132/84; PULSE 94; TEMP 37.1; O2SAT 99; BMI 25.5
== END 2024-05-01 11:50 | disposition home or self-care (01) ==
PROVIDERS: PCP Nurse Practitioner Family; Visit Provider Physician Assistant Medical
DX: M46.1 Sacroiliitis, not elsewhere classified (principal)
CPT/HCPCS: 99214

== ENCOUNTER 2024-05-03 15:35 | Outpatient (AMB) | payer BC, SELFPAY ==
--- NOTE | 2024-05-03 15:37 | A.OFFPC_ITS ---
Vital Signs 05/03/24 15:42 Weight 169 lb 4 oz BP 124/72 Blood Pressure Location Lt brachial Position Sitting Respiration 12 Pulse 85 Pulse Source Pulse Oximeter Temp 97.7 F Temp Source Temporal Artery Scan Pulse Oximetry (%) 100 Oxygen Delivery Method Room Air Intake Visit Reasons: one month follow up Intake Note: patient here for one month follow up. 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 Is last menstrual period known: No Post menopausal: No Patient : No Allergies No Known Allergies [No Known Allergies*] Allergy (Verified 05/03/24 16:13) Medication List - Last Reconciled 05/03/24 by Pat Moore CNP cyclobenzaprine 10 mg PO TID PRN ibuprofen (Advil Liqui-Gels Minis) 200 mg PO Q6H PRN lisinopril 20 mg PO DAILY 30 days multivitamin 1 tab PO DAILY naproxen 500 mg PO BID PRN 14 days psyllium husk (Metamucil) 1 tbsp PO DAILY Tobacco use date assessed: 03/05/24 Dental Screening Dental Screen Date: 03/08/24 HPI HPI Comments History of Present Illness Details 58 y/o female presents for HTN follow up She notes that she was she has been taking Lisinopril 20mg daily without adverse reactions Her home BP readings have consistently been in the 120s/70s-80s She has been maintaining a low sodium diet No acute symptoms PFSH Medical History No pertinent past medical history Surgical History No pertinent past surgical history Social History Housing: House Patient Tobacco Use Status: Never used Tobacco e-Cigarette/Vaping Use: Never Used Patient : No service: No Current occupational status: employed Current occupation: [employer] Current occupational exposures/hazards: Yes (works with blood) Cognitive needs: No Hearing needs: No Vision needs: No Questionnaire Thrive Questionnaire Date Thrive assessed: 01/29/23 MAXIMILIANO-7 AMB Questionnaire MAXIMILIANO-7 Date MAXIMILIANO - 7 assessed: 10/09/23 Source: Developed by Drs. Campos Odell, Twila Thornton, Laureano Childs and colleagues, with an educational sil from [employer]. Review of Systems Const Details: Const Denies chills, Denies fatigue, Denies fever(s), Denies headache(s) and Denies weakness ENT Denies dizziness and Denies headache(s) Card Denies chest pain, Denies lightheadedness, Denies dyspnea and Denies other (Palpitations) Resp Denies cough, Denies dyspnea, Denies wheezing and Denies other ( shortness of breath) GI Denies abdominal pain, Denies melena, Denies hematochezia, Denies change in bowel habits, Denies dyspepsia and Denies nausea Denies hematuria and Denies dysuria Musc Denies abnormal gait, Denies myalgias, Denies arthralgias, Denies numbness and Denies tingling Skin/Breast Denies rash, Denies unusual bruising and Denies wounds Neuro Denies abnormal gait, Denies dizziness, Denies headache(s), Denies memory loss, Denies numbness, Denies Sensory deficit (Neuro), Denies tingling and Denies weakness Psych Denies anxiety, Denies depression, Denies memory loss Endo Denies cold intolerance, Denies fatigue, Denies heat intolerance, Denies polydipsia and Denies polyuria Aller/Immun Denies wheezing Physical exam (Primary Care) Vital Signs: Last Vital Signs Temp 97.7 F 05/03/24 15:42 Pulse 85 05/03/24 15:42 Resp 12 05/03/24 15:42 BP 124/72 05/03/24 15:42 Pulse Ox 100 05/03/24 15:42 Oxygen Delivery Method Room Air 05/03/24 15:42 Tobacco/Smoking Status: Tobacco use Status Tobacco use date assessed 03/05/24 05/03/24 15:37 Patient Tobacco Use Status Never used Tobacco 05/03/24 15:37 e-Cigarette/Vaping Use Never Used 05/03/24 15:37 Thrive Assessment: Date of Thrive Assessment Date Thrive assessed 01/29/23 05/03/24 15:37 Const Other: General: no acute distress and well developed Nutritional Appearance: well nourished Orientation/consciousness: patient oriented x3 HENMT Head: Yes normocephalic and Yes atraumatic Eyes General: appearance normal, both eyes and all related structures Pupils: Equal, round and reactive pupils present EOM: EOMs intact bilaterally Resp Effort & Inspection: normal respiratory effort Auscultation: clear to auscultation bilaterally Cardio Rate: regular rate Rhythm: regular rhythm Heart sounds: S1 normal heart sound present, S2 normal heart sound present, no gallops, no murmurs and no rubs GI Palpation (GI): No Abdominal aortic bruit present, Soft to palpation, nontender, No hepatosplenomegaly present and No Rebound tenderness present Auscultation: normal bowel sounds General: Yes no CVA tenderness Back/Spine/Pelvis Back: no CVA tenderness Cervical Spine: cervical ROM normal and No Cervical spine tenderness Thoracic/Lumbar Spine: thoraco-lumbar ROM normal, No pain with thoraco-lumbar ROM, No thoracic spinal tenderness and No lumbar spinal tenderness Extrem General: Yes normal to inspection, No edema and No calf tenderness Skin General: warm and dry. Normal skin color. Normal skin turgor Neuro General: patient oriented x3, gait normal and no focal neuro deficit Cranial nerves: Yes Equal, round and reactive pupils present Cognition (Neuro): normal cognition Gait exam (Neuro): Normal gait present Sensory Exam: No Sensory deficit (Neuro) Psych Appearance: grossly normal Affect: normal affect Attitude: cooperative Thought process: Normal thought process present Assessment and Plan Assessment & Plan (1) Hypertension: Code(s): I10 - Essential (primary) hypertension Plan: Blood pressure is 124/72, within goal of less than 140/90 Home blood pressure readings have been within normal Continue current treatment regimen Low-sodium diet encouraged Follow-up as planned for an extended physical exam or sooner with symptoms or concerns Verbalized understanding and agreed with the treatment plan Coding Level of Care Code Est Pt Level 3 (91676) Complex EM visit Add On G2211 Diagnoses Hypertension I10
[2024-05-03 15:42] VITALS: BP 124/72; PULSE 85; RESP 12; TEMP 36.5; O2SAT 100
== END 2024-05-03 16:19 | disposition home or self-care (01) ==
PROVIDERS: PCP Nurse Practitioner Family; Visit Provider Nurse Practitioner Family
DX: I10 Essential (primary) hypertension (principal)
CPT/HCPCS: 99213

== ENCOUNTER 2024-05-25 15:35 | Outpatient (AMB) | payer BC, SELFPAY ==
--- NOTE | 2024-05-25 15:40 | A.OFFPC_ITS ---
Vital Signs 05/25/24 15:43 Height 5 ft 7 in Weight 168 lb 4 oz BMI 26.3 BP 130/80 Blood Pressure Location Rt brachial Position Sitting Respiration 16 Pulse 68 Pulse Source Palpation Temp 98.8 F Temp Source Oral Pulse Oximetry (%) 99 Oxygen Delivery Method Room Air Intake Visit Reasons: annual physical Intake Note: CPE, Is last menstrual period known: No Post menopausal: Yes Patient : No Allergies No Known Allergies [No Known Allergies*] Allergy (Verified 05/25/24 15:49) Medication List - Last Reconciled 05/25/24 by Pat Moore CNP ibuprofen (Advil Liqui-Gels Minis) 200 mg PO Q6H PRN lisinopril 20 mg PO DAILY 30 days multivitamin 1 tab PO DAILY psyllium husk (Metamucil) 1 tbsp PO DAILY Tobacco use date assessed: 05/25/24 Dental Screening Dental Screen Date: 05/25/24 Did you have a dental visit in the last 12 months?: Yes Did you have a dental problem in the last 6 months where you did not have access to dental care?: No Was dental information given to patient?: Patient has dentist HPI HPI Comments History of Present Illness Details 58-year-old female presents for an exten ded physical exam She has past medical history significant for hypertension and hyperlipidemia She admits to taking lisinopril 20 mg daily without adverse reactions She notes that she was on Lipitor until about 10 years ago. She changed PCP and was told the medication was not necessary. She notes that her mother has h/o HLD She offers no complaints and denies acute symptoms at this time Last colonoscopy was on 09/24/2023: Normal She notes that her last Pap smear test was about 3 years ago: normal She notes that her last mammogram was at [facility] about a year ago: normal She has not been vaccinated for shingles Nonsmoker. She drinks 3 glasses of wine weekly. 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 How often do you have a drink containing alcohol?: 2-3 times a week 2. How many drinks containing alcohol do you have on a typical day when you are drinking?: 3 or 4 3. How often do you have six or more drinks on one occasion?: Never Total Score: 4 Score Reviewed/Action Taken: Yes MAXIMILIANO-7 AMB Questionnaire MAXIMILIANO-7 Date MAXIMILIANO - 7 assessed: 10/09/23 Source: Developed by Drs. Campos Odell, Twila Thornton, Laureano Childs and colleagues, with an educational sil from [employer]. Review of Systems Const Details: Denies chills, Denies fatigue, Denies fever(s), Denies headache(s) and Denies weakness HEENT Denies change in vision, Denies dizziness, Denies headache(s), Denies hearing loss, Denies nasal congestion, Denies sinus pain, Denies sinus pressure and Denies sore throat Card Denies chest pain, Denies lightheadedness, Denies dyspnea and Denies other (palpitations) Resp Denies cough, Denies dyspnea and Denies wheezing GI Denies abdominal pain, Denies melena, Denies hematochezia, Denies change in bowel habits, Denies dyspepsia and Denies nausea Denies hematuria and Denies dysuria Musc Denies abnormal gait, Denies myalgias, Denies arthralgias, Denies numbness and Denies tingling Skin/Breast Denies rash, Denies unusual bruising and Denies wounds Neuro Denies abnormal gait, Denies dizziness, Denies headache(s), Denies memory loss, Denies numbness, Denies Sensory deficit (Neuro), Denies tingling and Denies weakness Psych Denies anxiety, Denies depression and Denies memory loss Endo Denies cold intolerance, Denies fatigue, Denies heat intolerance, Denies polydipsia and Denies polyuria Gurwinder/Lymph Denies easy bleeding and Denies easy bruising Aller/Immun Denies wheezing Physical exam (Primary Care) Vital Signs: Last Vital Signs Temp 98.8 F 05/25/24 15:43 Pulse 68 05/25/24 15:43 Resp 16 05/25/24 15:43 BP 130/80 05/25/24 15:43 BMI result Body Mass Index 26.3 Tobacco/Smoking Status: Tobacco use Status Tobacco use date assessed 05/25/24 05/25/24 15:43 Patient Tobacco Use Status Never used Tobacco 05/25/24 15:43 e-Cigarette/Vaping Use Never Used 05/25/24 15:43 Thrive Assessment: Date of Thrive Assessment Date Thrive assessed 01/29/23 05/25/24 15:43 Const Other: General: no acute distress, well developed, alert and awake Nutritional Appearance: well nourished Orientation/consciousness: patient oriented x3 HENMT Head: Yes normocephalic and Yes atraumatic Ears: hearing grossly normal bilaterally and TM's normal bilaterally General nose exam: Normal external nose present and Normal nares present Mouth: Normal oral and palatal mucosa present and moist mucous membranes Teeth and gingiva: dentition normal Throat: Yes oropharynx normal Eyes Pupils: Equal, round and reactive pupils present and Pupil accommodation reflex normal EOM: EOMs intact bilaterally Neck Neck: Yes normal visual inspection, Yes no lymphadenopathy and Yes trachea midline Thyroid: Thyroid normal Carotids: no bruits Lymphatic: no lymphadenopathy noted Chest Chest palpation & inspection: normal inspection of the chest Resp Effort & Inspection: normal respiratory effort Auscultation: clear to auscultation bilaterally Cardio Rate: regular rate Rhythm: regular rhythm Heart sounds: S1 normal heart sound present, S2 normal heart sound present, no gallops, no murmurs and no rubs Bruits: no abdominal aortic bruits and no carotid bruits GI Palpation (GI): No Abdominal aortic bruit present, Soft to palpation, nontender, No hepatosplenomegaly present and No Rebound tenderness present Auscultation: normal bowel sounds General: Yes no CVA tenderness Back/Spine/Pelvis Back: no CVA tenderness Cervical Spine: cervical ROM normal and No Cervical spine tenderness Thoracic/Lumbar Spine: thoraco-lumbar ROM normal, No pain with thoraco-lumbar ROM, No thoracic spinal tenderness and No lumbar spinal tenderness Skin General: warm and dry. Normal skin color. Normal skin turgor Lesions: no lesions Rashes: no rashes Trauma: no lacerations or abrasions Wounds: no wounds Nails: normal Neuro General: patient oriented x3, gait normal and CN's II-XI intact bilaterally Cranial nerves: Yes Equal, round and reactive pupils present Cognition (Neuro): normal cognition Gait exam (Neuro): Normal gait present Motor exam (neuro): 5/5 motor strength present throughout Sensory Exam: No Sensory deficit (Neuro) Deep tendon reflexes (DTR's): Right patellar reflex intensity grade: 2+ and Left patellar reflex intensity grade: 2+ Extrem General: Yes normal to inspection, No edema and No calf tenderness Psych Appearance: grossly normal Affect: normal affect Attitude: cooperative Thought process: Normal thought process present Assessment and Plan Assessment & Plan (1) Normal physical exam: Code(s): Z00.00 - Encounter for general adult medical examination without abnormal findings Plan: No significant physical restrictions or limitations noted Continue current treatment regimen Healthy diet and routine exercise encouraged Advised to get lab work done a few days before her next visit Follow-up in 2 months for hypertension and hypercholesterolemia or return sooner with symptoms or concerns Verbalized understanding and agreed with the treatment plan (2) Hypertension: Code(s): I10 - Essential (primary) hypertension Plan: Blood pressure is 130/80, within goal of less than 140/90 Continue current treatment regimen Low-sodium diet encouraged Follow-up in 3 months Verbalized understanding and agreed with the treatment plan (3) Hypercholesterolemia: Code(s): E78.00 - Pure hypercholesterolemia, unspecified Plan: Recent total cholesterol and LDL levels are elevated, 332 and 255 respectively History of hyperlipidemia, and was on Lipitor until 10 years ago Will start atorvastatin 20 mg q.h.s.. Advised to take as prescribed. Instructed on the risks, benefits and potential adverse reactions of the medication Advised to limit foods high in saturated fat and avoid foods high in trans fat Routine exercise encouraged Advised to fast for 10-12 hours, may drink water only, and get blood work done a few days before her next visit Follow-up in 2 months Verbalized understanding and agreed with the treatment plan (4) Pap smear for cervical cancer screening: Code(s): Z12.4 - Encounter for screening for malignant neoplasm of cervix Plan: Her last Pap smear test was about 3 years ago: Normal [place] [facility] [place] smear test (5) Vaccine counseling: Code(s): Z71.85 - Encounter for immunization safety counseling Plan: She has not been vaccinated for shingles Instructed on importance of vaccination and encouraged to get vaccinated for shingles. He may request the vaccines from her local pharmacy Verbalized understanding and agreed with the plan Orders: Orders Vitamin D 25-OH Total Today E55.9 - Vitamin D deficiency, unspecified Lipid Panel Today E78.00 - Pure hypercholesterolemia, unspecified Microalbumin, Random (w Creat) Today Z00.00 - Encounter for general adult medical examination without abnormal findings Referrals [facility] Referral Z12.4 - Encounter for screening for malignant neoplasm of cervix Medications: New atorvastatin 20 mg PO BEDTIME 30 days 30 tabs 3RF Coding Level of Care Code Est Pt Level 4 (16587) Est Pt Prev Care 40-64y(22443) Diagnoses Normal physical exam Z00.00 Hypertension I10 Hypercholesterolemia E78.00 Pap smear for cervical cancer screening Z12.4 Vaccine counseling Z71.85
[2024-05-25 15:43] VITALS: BP 130/80; PULSE 68; RESP 16; TEMP 37.1; O2SAT 99; BMI 26.3
== END 2024-05-25 16:14 | disposition home or self-care (01) ==
PROVIDERS: PCP Nurse Practitioner Family; Visit Provider Nurse Practitioner Family
DX: Z00.00 Encounter for general adult medical examination without abnormal findings (principal); I10 Essential (primary) hypertension; E78.00 Pure hypercholesterolemia, unspecified
CPT/HCPCS: 99214; 99396

== ENCOUNTER 2024-07-29 09:02 | Outpatient (REF) | payer BC, SELFPAY ==
[2024-07-29 13:31] LABS: Cholesterol 199 mg/dL (<200); HDL Cholesterol 65 mg/dL (>40); LDL Cholesterol Calculated 119 mg/dL (<100); Triglycerides 76 mg/dL (<150)
[2024-07-29 13:48] LABS: Creatinine Urine 28.39 mg/dL; Microalbumin Urine < 5.0 mg/L
[2024-07-29 13:50] LABS: Vitamin D 25-OH Total 40.8 ng/mL (>30)
== END 2024-07-29 09:03 | disposition home or self-care (01) ==
LOC: HO.HMGCLDS 09:02
PROVIDERS: PCP Nurse Practitioner Family; Visit Provider Nurse Practitioner Family
DX: Z00.00 Encounter for general adult medical examination without abnormal findings (principal); E55.9 Vitamin D deficiency, unspecified; E78.00 Pure hypercholesterolemia, unspecified
CPT/HCPCS: 36415; 80061; 82306; 82570

== ENCOUNTER 2024-07-30 11:11 | Outpatient (AMB) | payer BC, SELFPAY ==
--- NOTE | 2024-07-30 11:31 | A.OFFPC_ITS ---
Vital Signs 07/30/24 11:36 Height 5 ft 7 in Weight 169 lb 2 oz BMI 26.5 BP 134/72 Blood Pressure Location Lt brachial Position Sitting Respiration 15 Pulse 80 Pulse Source Pulse Oximeter Temp 97.4 F Temp Source Oral Pulse Oximetry (%) 98 Oxygen Delivery Method Room Air Intake Visit Reasons: HTN, hypercholesterolemia Intake Note: follow up on hypertension Allergies No Known Allergies [No Known Allergies*] Allergy (Verified 07/30/24 11:58) Medication List - Last Reconciled 07/30/24 by Pat Moore CNP atorvastatin 20 mg PO BEDTIME 30 days ibuprofen (Advil Liqui-Gels Minis) 200 mg PO Q6H PRN lisinopril 20 mg PO DAILY 30 days multivitamin 1 tab PO DAILY psyllium husk (Metamucil) 1 tbsp PO DAILY Tobacco use date assessed: 05/25/24 Dental Screening Dental Screen Date: 05/25/24 HPI HPI Comments History of Present Illness Details 59-year-old female presents for hyperten trae and hypercholesterolemia follow-up She admits to taking her medications as prescribed without adverse reactions She has been making healthy lifestyle changes, including diet and exercise She stop feeling anxious since she recently quit her job. She will take a break from working and will find a new job She offers no complaints and denies acute symptoms at this time [facility] Medical History No pertinent past medical history Surgical History No pertinent past surgical history Social History (Updated 05/25/24 @ 15:42 by Altaf Gaviria [facility]) Housing: House Patient Tobacco Use Status: Never used Tobacco e-Cigarette/Vaping Use: Never Used service: No Current occupational status: employed Current occupation: 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 How many drinks containing alcohol do you have on a typical day when you are drinking?: 1 or 2 3. How often do you have six or more drinks on one occasion?: Never Total Score: 0 MAXIMILIANO-7 AMB Questionnaire MAXIMILIANO-7 Date MAXIMILIANO - 7 assessed: 10/09/23 Source: Developed by Drs. Campos Odell, Twila Thornton, Laureano Childs and colleagues, with an educational sil from [employer]. Review of Systems Const Details: Const Denies chills, Denies fatigue, Denies fever(s), Denies headache(s) and Denies weakness ENT Denies dizziness and Denies headache(s) Card Denies chest pain, Denies lightheadedness, Denies dyspnea and Denies other (Palpitations) Resp Denies cough, Denies dyspnea, Denies wheezing and Denies other ( shortness of breath) GI Denies abdominal pain, Denies melena, Denies hematochezia, Denies change in bowel habits, Denies dyspepsia and Denies nausea Denies hematuria and Denies dysuria Musc Denies abnormal gait, Denies myalgias, Denies arthralgias, Denies numbness and Denies tingling Skin/Breast Denies rash, Denies unusual bruising and Denies wounds Neuro Denies abnormal gait, Denies dizziness, Denies headache(s), Denies memory loss, Denies numbness, Denies Sensory deficit (Neuro), Denies tingling and Denies weakness Endo Denies cold intolerance, Denies fatigue, Denies heat intolerance, Denies polydipsia and Denies polyuria Aller/Immun Denies wheezing Physical exam (Primary Care) Vital Signs: Last Vital Signs Temp 97.4 F 07/30/24 11:36 Pulse 80 07/30/24 11:36 Resp 15 07/30/24 11:36 BP 134/72 07/30/24 11:36 Pulse Ox 98 07/30/24 11:36 Oxygen Delivery Method Room Air 07/30/24 11:36 BMI result Body Mass Index 26.5 Tobacco/Smoking Status: Tobacco use Status Tobacco use date assessed 05/25/24 07/30/24 11:32 Patient Tobacco Use Status Never used Tobacco 07/30/24 11:32 e-Cigarette/Vaping Use Never Used 07/30/24 11:32 Thrive Assessment: Date of Thrive Assessment Date Thrive assessed 01/29/23 07/30/24 11:32 Const Other: General: no acute distress and well developed Nutritional Appearance: well nourished Orientation/consciousness: patient oriented x3 HENMT Head: Yes normocephalic and Yes atraumatic Eyes General: appearance normal, both eyes and all related structures Pupils: Equal, round and reactive pupils present EOM: EOMs intact bilaterally Resp Effort & Inspection: normal respiratory effort Auscultation: clear to auscultation bilaterally Cardio Rate: regular rate Rhythm: regular rhythm Heart sounds: S1 normal heart sound present, S2 normal heart sound present, no gallops, no murmurs and no rubs GI Palpation (GI): No Abdominal aortic bruit present, Soft to palpation, nontender, No hepatosplenomegaly present and No Rebound tenderness present Auscultation: normal bowel sounds General: Yes no CVA tenderness Back/Spine/Pelvis Back: no CVA tenderness Cervical Spine: cervical ROM normal and No Cervical spine tenderness Thoracic/Lumbar Spine: thoraco-lumbar ROM normal, No pain with thoraco-lumbar ROM, No thoracic spinal tenderness and No lumbar spinal tenderness Extrem General: Yes normal to inspection, No edema and No calf tenderness Skin General: warm and dry. Normal skin color. Normal skin turgor Neuro General: patient oriented x3, gait normal and no focal neuro deficit Cranial nerves: Yes Equal, round and reactive pupils present Cognition (Neuro): normal cognition Gait exam (Neuro): Normal gait present Sensory Exam: No Sensory deficit (Neuro) Psych Appearance: grossly normal Affect: normal affect Attitude: cooperative Thought process: Normal thought process present Coding Level of Care Code Est Pt Level 3 (95461) Diagnoses Hypertension I10 Hypercholesterolemia E78.00 Assessment & Plan Assessment & Plan (1) Hypertension: Code(s): I10 - Essential (primary) hypertension Category: Medical Plan: Blood pressure is 134/72, within goal of less than 140/90 Continue current treatment regimen Low-sodium diet encouraged Follow-up in 3 months or sooner with symptoms or concerns Verbalized understanding and agreed with the treatment plan (2) Hypercholesterolemia: Code(s): E78.00 - Pure hypercholesterolemia, unspecified Category: Medical Plan: Recent triglycerides, total cholesterol, LDL, and HDL levels are normal, 76, 199, 119, and 65 respectively Continue current treatment regimen Advised to limit foods high in saturated fat and avoid foods high in trans fat Routine exercise encouraged Will recheck lipid panel level in 3 months. Advised to fast for 10-12 hours, may drink water only, and get blood work done before next visit Follow-up in 3 months Verbalized understanding and agreed with the plan Orders: Orders Lipid Panel 3 Months E78.00 - Pure hypercholesterolemia, unspecified
[2024-07-30 11:36] VITALS: BP 134/72; PULSE 80; RESP 15; TEMP 36.3; O2SAT 98; BMI 26.5
== END 2024-07-30 12:06 | disposition home or self-care (01) ==
PROVIDERS: PCP Nurse Practitioner Family; Visit Provider Nurse Practitioner Family
DX: I10 Essential (primary) hypertension (principal); E78.00 Pure hypercholesterolemia, unspecified

== ENCOUNTER → 2024-07-30 11:11 | Outpatient (BNVA) | payer BC, SELFPAY | PROVIDERS: PCP Nurse Practitioner Family; Visit Provider Nurse Practitioner Family ==

== ENCOUNTER 2024-11-03 08:08 | Outpatient (REF) | payer BC, SELFPAY ==
[2024-11-04 08:02] LABS: HPV 16,18/45 See PAP report
== END 2024-11-03 08:09 | disposition home or self-care (01) ==
LOC: HO.LNP 08:08
PROVIDERS: PCP Nurse Practitioner Family; Visit Provider Obstetrics & Gynecology
DX: Z01.419 Encounter for gynecological examination (general) (routine) without abnormal findings (principal)
CPT/HCPCS: 87626; 88175

== ENCOUNTER 2024-11-03 08:08 | Outpatient (AMB) | payer BC, SELFPAY ==
--- NOTE | 2024-11-03 08:10 | A.OFFVIS_ITS ---
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 5 years ago, last mammogram was last year at [facility] Allergies No Known Allergies [No Known Allergies*] Allergy (Verified 11/03/24 08:14) HPI Comments Details: Presenting for annual exam. No complaints. 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) Cognitive needs: No Hearing needs: No Vision needs: No Female Reproductive History Menstrual Total pregnancies: 1 Full term: 1 Review of Systems Const All systems reviewed & are unremarkable except as noted in HPI and below Card Reports as per HPI Resp Reports as per HPI GI Reports as per HPI and Reports no additional complaints Reports as per HPI Physical Exam Vital Signs: Last Vital Signs BP 118/78 11/03/24 08:16 BMI result Body Mass Index 26.5 Const General: cooperative, healthy appearing and comfortable Chest Chest palpation & inspection: normal inspection of the chest and normal palpation of entire chest wall Breast/axilla inspection: normal inspection of the breasts and normal inspection of the axillae Breast/axilla palpation: normal palpation of the breasts, normal palpation of the axillae and no axillary lymphadenopathy Resp Effort & Inspection: normal respiratory effort Auscultation: clear to auscultation bilaterally Percussion: percussion normal Cardio Palpation: normal PMI Rate: regular rate Rhythm: regular rhythm Heart sounds: no murmurs and no rubs Peripheral pulses: Peripheral pulses 2+ throughout GI Inspection: Yes normal to inspection Palpation (GI): Soft to palpation, nontender, no guarding, not rigid and No hepatosplenomegaly present Percussion: Yes normal to percussion Auscultation: normal bowel sounds Rectal Exam - Female: deferred General: Yes bladder normal to palpation External Female Exam: No lesion Speculum Exam - Vagina: normal appearance of the vagina, normal palpation, normal vaginal discharge and not erythematous Speculum Exam - Cervix: normal appearance of the cervix and normal palpation Bimanual exam- vagina & uterus: normal bimanual exam, normal palpation, uterine size normal, bladder normal to palpation, consistency normal and normal palpation Bimanual Exam- Adnexa, other: normal adnexae, no masses and no tenderness Assessment & Plan Assessment & Plan (1) Well woman exam: Code(s): Z01.419 - Encounter for gynecological examination (general) (routine) without abnormal findings Category: Medical Plan: Co testing done. Counseled the patient about the recommended dietary allowance of 1200 mg of Calcium & 600 IU of vitamin D. Mammogram ordered. The patient was referred to GI for screening colonoscopy . The patient was instructed to perform monthly self-breast exams and schedule annual exam in a year. All questions answered and the patient verbalized understanding. Orders: Orders MM tomosynthesis screening BI Today Z12.31 - Encounter for screening mammogram for malignant neoplasm of breast Referrals Gastroenterology Referral Z12.11 - Encounter for screening for malignant neoplasm of colon Coding Level of Care Code New Pt Prev Care 40-64y(12891) Diagnoses Well woman exam Z01.419
[2024-11-03 08:16] VITALS: BP 118/78; BMI 26.5
--- OUTSIDE RECORDS SUMMARY | 2024-11-03 08:16 | XMS_ITS | Patient Health Record ---
Author Organization [id number] Address [address] [place] [address] Support Name Relationship Address Phone Ricky Contreras Guarantor Unknown [phone] Allergies No Known Allergies Reason For Referral No Information Plan Of Treatment No Information Insurance Providers Payer Name Payer Address Payer Phone Subscriber Number Group Number Insured Name Patient Relationship to Insured Coverage Start Date Coverage End Date [employer] MEDICAID (Do not use) [address] [place] [address] [phone] [id number] Vinay Contreras Spouse - patient is the spouse of the insured
== END 2024-11-03 08:58 | disposition home or self-care (01) ==
LOC: HO.HWS 08:08
PROVIDERS: PCP Nurse Practitioner Family; Visit Provider Obstetrics & Gynecology
DX: Z01.419 Encounter for gynecological examination (general) (routine) without abnormal findings (principal)
CPT/HCPCS: 99386; 99459